=== PATIENT | female | born 1960 | race Caucasian/White ===

== ENCOUNTER 2018-12-19 14:18 | Emergency (ER) | payer MEDICAID, OTHER ==
[~2018-12-19] VITALS: Ht 162.6 cm; Wt 82.0 kg
[~2018-12-19 14:18] MED LIST: METF500T24 PO
[2018-12-19 14:28] VITALS: Ht 162.6 cm; Wt 82.0 kg
[2018-12-19] MEDS ORDERED: KETOROLAC 60 MG INJ IM STA (18:17)
[2018-12-19] MEDS ORDERED: HYDR-4011 PO (18:19)
[2018-12-19] MEDS ORDERED: IBUP-1542 PO (18:19)
[2018-12-19] MEDS ORDERED: HYDROCODONE/APAP (10/325) TAB PO ONE (18:30)
--- NOTE | 2018-12-19 18:31 | ERD ---
ER Documentation Chief Complaint Chief Complaint R knee pain radiating to entire leg X 1 month, worse past 2 wks 05/27 HPI 58-year-old female with history of chronic knee pain presents with history of bilateral knee pain for the past month. States that the knee pain is gotten worse for last 2 weeks. States that she would like medication for pain. Denies any history of trauma. States that the ibuprofen she is taking is not been effective. States the pain has been keeping her up at night. Pain is made worse upon ambulation and upon palpation. Denies any fevers, numbness, tingling, incontinence, back pain. ROS All systems reviewed and are negative except as per history of present illness. Medications Home Meds Active Scripts Hydrocodone/Acetaminophen ([place] 5-325 Tablet) 1 Each Tablet, 1 TAB PO Q6H PRN for PAIN, #15 TAB Prov:LE BLACKBURN 12/19/18 Ibuprofen* (Motrin*) 600 Mg Tab, 600 MG PO Q6 for pain, #30 TAB Prov:LE BLACKBURN 12/19/18 Reported Medications Metformin Hcl* (Metformin Hcl*) 500 Mg Tablet, 500 MG PO BID WITH MEALS, TAB 09/19/14 Allergies Allergies: Coded Allergies: No Known Allergy (Unverified , 09/19/14) PMhx/Soc History of Surgery: Yes (, GALLBLADDER) Anesthesia Reaction: No Hx Neurological Disorder: Yes (ASTHMA) Hx Respiratory Disorders: No Hx Cardiac Disorders: Yes (HTN) Hx Psychiatric Problems: No Hx Miscellaneous Medical Probl: Yes (DM, CHOLESTEROL) Hx Alcohol Use: No Hx Substance Use: No Hx Tobacco Use: No Smoking Status: Never smoker FmHx Family History: No diabetes, No coronary disease, No other Physical Exam Vitals Vital Signs Date Temp Pulse Resp B/P (MAP) Pulse Ox O2 O2 Flow FiO2 Time Delivery Rate 12/19/18 98.2 97 18 171/74 98 14:28 (106) Physical Exam Const: No acute distress Head: Atraumatic Eyes: Normal Conjunctiva ENT: Normal External Ears, Nose and Mouth. Neck: Full range of motion. No meningismus. Resp: Clear to auscultation bilaterally Cardio: Regular rate and rhythm, no murmurs Abd: Soft, non tender, non distended. Normal bowel sounds Skin: No petechiae or rashes Back: No midline or flank tenderness Ext: Bilateral knees are tender to palpation with no erythema, edema, or effusion noted. Distal sensation and pulses on both legs are intact. Overlying skin is intact. There is no bony deformity noted on knees or legs bilaterally. There is no calf tenderness or swelling or erythema bilaterally. Neur: Awake and alert Psych: Normal Mood and Affect Results 24 hrs Current Medications Medications Dose Sig/Zulay Start Time Status Last (Trade) Ordered Route PRN Stop Time Admin Dose Reason Admin Ketorolac 60 mg ONCE STAT 12/19/18 DC Tromethamine IM 18:17 12/19/18 (Toradol) 18:19 1 tab ONCE ONCE 12/19/18 Acetaminophen PO 18:30 12/19/18 / 18:31 Hydrocodone Bitart ([place] ()) Procedures/MDM Patient's presentation is consistent with osteoarthritis. Patient was advised that this condition is chronic and needs to be managed on outpatient basis. Patient was given [place] and ibuprofen in the ER and sent home with short course of [place] and ibuprofen. I have low suspicion for neurovascular compromise, compartment syndrome, fracture, osteomyelitis, septic joint, cauda equina, DVT, or other emergent condition. Patient discharged with strict ER precautions. Patient advised to follow up with PMD. All questions answered at discharge. Departure Diagnosis: Primary Impression: Knee pain Chronicity: chronic Laterality: bilateral Qualified Codes: M25.561 - Pain in right knee; M25.562 - Pain in left knee; G89.29 - Other chronic pain Condition: Stable Patient Instructions: What Is Osteoarthritis?, Osteoarthritis: Coping with Joseph n, Osteoarthritis: Exercise, Osteoarthritis: Managing Pain, Osteoarthritis: Tips for Daily Living, Knee Pain, Uncertain Cause Referrals: [facility] YOU HAVE RECEIVED A MEDICAL SCREENING EXAM AND THE RESULTS INDICATE THAT YOU DO NOT HAVE A CONDITION THAT REQUIRES URGENT TREATMENT IN THE EMERGENCY DEPARTMENT. FURTHER EVALUATION AND TREATMENT OF YOUR CONDITION CAN WAIT UNTIL YOU ARE SEEN IN YOUR DOCTORS OFFICE WITHIN THE NEXT 1-2 DAYS. IT IS YOUR RESPONSIBILITY TO MAKE AN APPOINTMENT FOR FOLOW-UP CARE. IF YOU HAVE A PRIMARY DOCTOR --you should call your primary doctor and schedule an appointment IF YOU DO NOT HAVE A PRIMARY DOCTOR YOU CAN CALL OUR PHYSICIAN REFERRAL HOTLINE AT IF YOU CAN NOT AFFORD TO SEE A PHYSICIAN YOU CAN CHOSE FROM THE FOLLOWING [facility] [id number] [facility] [id number] [email or web address] [id number] [facility] [address] [facility] [address] [facility]. [facility] [address] Additional Instructions: FOLLOW UP WITH YOUR PRIMARY CARE PHYSICIAN TOMORROW.Return to this facility if you are not improving as expected. LE BLACKBURN Dec 19, 2018 18:31
[2018-12-19 19:00] VITALS: BP 171/88; PULSE 83; RESP 18
== END 2018-12-19 19:02 | disposition home or self-care (01) ==
LOC: FTE 14:18
DX: M25.561 Pain in right knee (principal); I10 Essential (primary) hypertension; E11.9 Type 2 diabetes mellitus without complications; M25.562 Pain in left knee; J45.909 Unspecified asthma, uncomplicated; Z79.84 Long term (current) use of oral hypoglycemic drugs
CPT/HCPCS: 96372; J1885; Z7502; Z7610